=== PATIENT | male | born 1980 | race Caucasian/White ===

== ENCOUNTER 2017-11-12 09:49 | Emergency (ER) | payer SELFPAY | END 2017-11-12 22:12 | disposition left against medical advice (07) | LOC: E/R 09:49 | DX: Z53.21 Procedure and treatment not carried out due to patient leaving prior to being seen by health care provider (principal) | CPT/HCPCS: 93005 ==

== ENCOUNTER 2018-09-14 16:49 | Emergency (ER) | payer SELFPAY ==
[2018-09-14] MEDS: LIDOCAINE/MYLANTA 40 ML BTL PO (17:39)
[2018-09-14] MEDS: RANITIDINE 150 MG TAB PO (17:39)
== END 2018-09-14 18:11 | disposition home or self-care (01) ==
LOC: FTE 16:49
DX: F41.9 Anxiety disorder, unspecified (principal)
CPT/HCPCS: 93005; 99283-25